=== PATIENT | female | born 1960 | race African-American/Black ===

== ENCOUNTER 2018-11-05 13:30 | Inpatient (IN) ==
[2018-11-05] MEDS ORDERED: ONDANSETRON 4 MG/2 ML VIAL IV PRN (14:44)
[2018-11-05] MEDS ORDERED: ACETAMINOPHEN 325 MG TABLET PO PRN (14:44)
[2018-11-05] MEDS ORDERED: ALBUTEROL/IPRATROPIUM 3 ML NEB RESP TX PRN (14:44)
[2018-11-05] MEDS ORDERED: MORPHINE 4 MG/1 ML VIAL IV PRN ×2 (14:44)
[2018-11-05 15:55] LABS: Basophils % 0.2 % (0.0-0.8); Eosinophils % 0.1 % (0.00-10.9); Hematocrit 39.2 VOL% (35.7-47.0); Hemoglobin 12.5 GM/DL (12.0-16.0); Immature Granulocytes % 0.4 %; Immature Granulocytes Absolute 0.07 #; Lymphocytes # 1.1 10*3/uL (1.4-4.0); Lymphocytes % 6.7 % (21.3-54.2); Mean Corpuscular HGB Conc 31.9 GM/DL (32-36); Mean Corpuscular Hemoglobin 27 PG (27-34); Mean Corpuscular Volume 84.1 FL (87-102); Mean Platelet Volume 12.7 FL (9.6-12.0); Monocytes # 1.7 10*3/uL (0.11-0.8); Monocytes % 9.9 % (1.7-12.7); Neutrophils # 13.8 10*3/uL (1.4-7.4); Neutrophils % 82.7 % (38.7-73.9); Platelet Count 268 T/CUMM (130-400); Red Blood Count 4.66 MC/CUMM (3.8-5.5); Red Cell Distribution Width 12.8 % (9.3-17.3); White Blood Count 16.7 T/CUMM (4-12)
[2018-11-05 16:20] LABS: Albumin 3.7 G/DL (3.4-5.0); Bilirubin,Total 0.9 MG/DL (0.2-1.0); Calcium 8.8 MG/DL (8.5-10.1); Potassium 3.4 MMOL/L (3.5-5.1); Total Protein 7.6 G/DL (6.4-8.3)
[2018-11-05] MEDS ORDERED: INFLUENZA VIRUS VACCINE 0.5 ML SYRINGE IM ONE (17:26)
[2018-11-05] MEDS ORDERED: cefOXitin 2,000 MG in SYRINGE 1 EACH IV SCH (18:00)
[2018-11-05] MEDS: LACTATED RINGERS 1,000 ML IV SCH (19:42)
[2018-11-05] MEDS: PANTOPRAZOLE 40 MG TABLET PO SCH (19:46)
[2018-11-05] MEDS: cefOXitin 2,000 MG in SYRINGE 1 EACH IV SCH (23:58)
[2018-11-06] MEDS: cefOXitin 2,000 MG in SYRINGE 1 EACH IV SCH ×4 (03:01→21:31)
[2018-11-06] MEDS: LACTATED RINGERS 1,000 ML IV SCH ×3 (03:40→17:18)
[2018-11-06] MEDS ORDERED: POTASSIUM CHLORIDE 20 MEQ TABLET PO ONE ×2 (07:59→15:30)
[2018-11-06] MEDS ORDERED: ZALEPLON 5 MG CAPSULE PO PRN (08:30)
[2018-11-06] MEDS ORDERED: TISSUE ADHESIVE 1 EACH APPLICATOR TOP ONE (12:26)
[2018-11-06] MEDS ORDERED: LIDOCAINE 1%/EPI INJ 20 ML VIAL ONE (12:26)
[2018-11-06] MEDS ORDERED: PROPOFOL 200 MG/20 ML VIAL IV ONE (14:46)
[2018-11-06] MEDS ORDERED: MIDAZOLAM 2 MG/2 ML VIAL ONE (14:46)
[2018-11-06] MEDS ORDERED: fentaNYL 100 MCG/2 ML VIAL ONE (14:46)
[2018-11-06] MEDS ORDERED: GLYCOPYRROLATE 0.4 MG/2 ML VIAL ONE (14:47)
[2018-11-06] MEDS ORDERED: NEOSTIGMINE 10 MG/10 ML VIAL ONE (14:47)
[2018-11-06] MEDS ORDERED: KETOROLAC 30 MG/1 ML VIAL ONE (14:47)
[2018-11-06] MEDS ORDERED: ROCURONIUM 100 MG/10 ML VIAL IV ONE (14:47)
[2018-11-06] MEDS ORDERED: DEXAMETHASONE 10 MG/1 ML VIAL ONE (14:47)
[2018-11-06] MEDS ORDERED: ONDANSETRON 4 MG/2 ML VIAL ONE (14:47)
[2018-11-06] MEDS: PANTOPRAZOLE 40 MG TABLET PO SCH (15:38)
[2018-11-06] MEDS: amLODIPine 10 MG TABLET PO SCH (15:38)
[2018-11-06] MEDS: ASPIRIN CHEW 81 MG TABLET PO SCH (15:38)
[2018-11-06] MEDS: BISACODYL 5 MG TABLET PO PRN (21:27)
[2018-11-06 22:06] LABS: Apearance,Urine Slightly Hazy (Clear); Bacteria,Urine Occasional /HPF (Few); Bilirubin,Urine Negative (Negative); Blood, Urine Moderate mg/dL (Negative); Glucose,Urine (UA) Negative (Negative); Ketones,Urine 20 mg/dL (Negative); Mucus,Urine Occasional /LPF (Occasional); Nitrite,Urine Negative (Negative); Protein,Urine 30 MG/DL; RBC,Urine 9 /HPF (0-4); Squamous Epithelial Cell,Urine Occasional /HPF (0-10); Urine Color Amber (Yellow); Urine Specific Gravity 1.021 (1.001-1.035); WBC,Urine 4 /HPF (0-6)
[2018-11-07] MEDS: LACTATED RINGERS 1,000 ML IV SCH ×2 (01:50→10:11)
[2018-11-07] MEDS: cefOXitin 2,000 MG in SYRINGE 1 EACH IV SCH ×2 (03:21→09:59)
[2018-11-07 03:36] LABS: Albumin 2.7 G/DL (3.4-5.0); Bilirubin,Total 0.4 MG/DL (0.2-1.0); Calcium 8.1 MG/DL (8.5-10.1); Osmolality,Calculated 278.7 MOS/KG (273-304); Potassium 4.1 MMOL/L (3.5-5.1); Total Protein 6.5 G/DL (6.4-8.3)
[2018-11-07] MEDS: BISACODYL 5 MG TABLET PO PRN (09:58)
[2018-11-07] MEDS: ASPIRIN CHEW 81 MG TABLET PO SCH (09:59)
[2018-11-07] MEDS: PANTOPRAZOLE 40 MG TABLET PO SCH (09:59)
[2018-11-07] MEDS: amLODIPine 10 MG TABLET PO SCH (09:59)
[2018-11-07 11:07] VITALS: BP 102/72
== END 2018-11-07 12:06 | disposition home or self-care (01) | DRG 419 ==
LOC: N.CT 13:30 → N.4E 15:10 → SUATTDRO 15:10 → N.4E 18:04
PROVIDERS: ADMIT Surgery; ATTEND Surgery
PROC: LAPCHOL (2018-11-06 12:50)